=== PATIENT | male | born 1960 | race Two or more races ===

== ENCOUNTER 2021-12-14 08:57 | Outpatient (REF) | payer MEDICARE, SELFPAY ==
--- NOTE | ~2021-12-14 | XR_ITS ---
EXAMINATION: XR LUMBOSACRAL SPINE CLINICAL INFORMATION: Low back pain COMPARISON: None TECHNIQUE: Three views of the lumbosacral spine. FINDINGS: 5 nonrib-bearing lumbar-type vertebral bodies. No acute visible fracture or dislocation. Mild multilevel degenerative changes with disc space narrowing, endplate sclerosis, osteophyte formation, facet arthropathy. Vertebral body heights and disc spaces are otherwise maintained. Posterior elements are intact. Paraspinal soft tissues are unremarkable. Atherosclerotic calcifications of the abdominal aorta. Visualized bowel gas is unremarkable. XR/XR lumbar spine 2-3V IMPRESSION: 1. No acute visible fracture or dislocation. 2. Mild multilevel degenerative changes.
--- NOTE | ~2021-12-14 | XR_ITS ---
EXAMINATION: XR BILATERAL HIPS WITH AP PELVIS CLINICAL INFORMATION: Pain in bilateral hips COMPARISON: None TECHNIQUE: AP view of the pelvis and 2 views of each hip were obtained. FINDINGS: No acute visible fracture or dislocation. Mild degenerative changes of the bilateral femoral acetabular joints with joint space narrowing and periarticular osteophyte formation. Degenerative changes of the lumbosacral junction and inferior aspect of the bilateral sacroiliac joints. Joint spaces and alignment are otherwise maintained. Soft tissues are unremarkable. Visualized bowel gas is unremarkable. Atherosclerotic calcifications are noted. XR/XR hip BI w PEL1V IMPRESSION: 1. No acute visible fracture or dislocation. 2. Mild degenerative changes of the bilateral femoral acetabular joints.
== END 2021-12-14 08:58 | disposition home or self-care (01) ==
LOC: HO.XRAY 08:57
PROVIDERS: PCP Pediatrics; Visit Provider Pediatrics
DX: M25.551 Pain in right hip (principal); M54.50 Low back pain, unspecified; M25.552 Pain in left hip
CPT/HCPCS: 72100; 73521